=== PATIENT | male | born 1970 | race Two or more races ===

== ENCOUNTER 2019-09-27 12:27 | Emergency (ER) | payer OTHER ==
[~2019-09-27] VITALS: Ht 167.6 cm; Wt 68.9 kg
[2019-09-27 12:39] VITALS: BP 124/77
--- NOTE | 2019-09-27 12:39 | NUR ---
ED Nurse Note: Pt came in to ED from home c/o right wrist laceration x30 min ago. As per patirent, he accidentally hit his wrist with a tomato slicer. Pt c/o 10 pain. Radial pulses noted. Patient feels slightly dizzy. Cap refill less 3 sec. No active bleeding. VSS.
--- NOTE | 2019-09-27 12:45 | NUR ---
ED Nurse Note: ERPA at bedside.
[2019-09-27] MEDS ORDERED: METFORMIN HCL500 M1 ORAL (12:47)
[2019-09-27] MEDS ORDERED: ATORVASTATIN CA20 MG ORAL (12:47)
[2019-09-27] MEDS ORDERED: GLIPIZIDE5 MG ORAL (12:47)
--- NOTE | 2019-09-27 13:12 | Emergency Room Report ---
History of Present Illness General Chief Complaint: Laceration Source: Patient Present Illness HPI 48-year-old male presents to the emergency department complaining of laceration to the right wrist x30 minutes prior to arrival that is 10/10 in severity. Patient reports he accidentally sliced his wrist when he leaned on top of the blade of a vegetable chopper. Patient denies taking blood thinning medications he reports only significant past medical history of hypertension and diabetes type 2. He reports that he takes 800 mg ibuprofen regularly for back pain. He states he is not sure when his last tetanus vaccination was. Patient reports some mild bleeding at this time he reports some slight numbness to the skin about the laceration. He denies numbness or tingling in the distal extremities or loss of gross motor movements of the affected extremities. No other aggravating or relieving factors. He states his cleaned the wound [employer] with alcohol. Allergies: Coded Allergies: No Known Allergies (Verified Allergy, Unknown, 11/07/07) Patient History Past Medical History: see triage record Past Surgical History: none Pertinent Family History: none Reviewed Nursing Documentation: PMH: Agreed; PSxH: Agreed Nursing Documentation-PMH Past Medical History: No History, Except For Review of Systems All Other Systems: negative except mentioned in HPI Physical Exam Vital Signs Date Time Temp Pulse Resp B/P (MAP) Pulse Ox O2 Delivery O2 Flow Rate FiO2 09/27/19 12:33 97.5 60 16 124/77 (93) 95 Room Air Sp02 EP Interpretation: reviewed, normal General Appearance: no apparent distress, alert, GCS 15, non-toxic Head: normocephalic, atraumatic Eyes: bilateral eye normal inspection, bilateral eye PERRL ENT: hearing grossly normal, normal voice Neck: full range of motion Respiratory: lungs clear, normal breath sounds, speaking full sentences Cardiovascular #1: regular rate, rhythm, normal capillary refill Cardiovascular #2: 2+ radial (R), 2+ radial (L) Musculoskeletal: normal range of motion, gait/station normal, non-tender Neurologic: alert, motor strength/tone normal, oriented x3, sensory intact, responsive, speech normal Psychiatric: judgement/insight normal Skin: laceration - Right wrist laceration approx 4 cm in length Procedures Laceration/Wound Repair Laceration/Wound Repair : Consent: Verbal Wound Location: upper extremity - Right wrist Wound's Depth, Shape: linear, flap Wound Length (cm): 4 Wound Explored: clean Irrigated w/ Saline (ccs): 200 Anesthesia: Lidocaine w/ Epi Volume Anesthetic (ccs): 3 Wound Repaired With: sutures Suture Size/Type: 5:0 Number of Sutures: 5 Layer Closure?: No Sterile Dressing Applied?: Yes Splint Applied?: Yes - Right wrist Type of Splint Applied: Right wrist Sling Applied?: No Patient Tolerated: Well Complications: None Medical Decision Making PA Attestation Dr. Stephens is my supervising Physician whom patient management has been discussed with. Diagnostic Impression: Primary Impression: Laceration ER Course 48-year-old male presents to the emergency department complaining of laceration to the right wrist x30 minutes prior to arrival that is 10/10 in severity. Patient reports he accidentally sliced his wrist when he leaned on top of the blade of a vegetable chopper. Patient denies taking blood thinning medications he reports only significant past medical history of hypertension and diabetes type 2. He reports that he takes 800 mg ibuprofen regularly for back pain. He states he is not sure when his last tetanus vaccination was. Patient reports some mild bleeding at this time he reports some slight numbness to the skin about the laceration. He denies numbness or tingling in the distal extremities or loss of gross motor movements of the affected extremities. No other aggravating or relieving factors. He states his cleaned the wound [employer] with alcohol. Ddx considered but are not limited to laceration, tendon injury, cellulitis, amputation Vital signs: are WNL, pt. is afebrile H&PE are most consistent with: Right wrist laceration approx 4 cm in length ORDERS: none required at this time, the diagnosis is clinical ED INTERVENTIONS: -Tetanus vaccine was administered as pt. vaccination status was unknown. - The wound was copiously irrigated with normal saline, and explored for foreign body for which no FB was found. - pt. is anesthetized with 1%lidocaine w. epi. - The wound was approximated and closed using 5 interrupted 5.0 Ethilon sutures. -Bacitracin and sterile dressing is applied. Right wrist Splint applied by gi tech. Pt. remains neurovascularly intact. Discussed with patient: That we make every effort to approximate the laceration as best as we can so that scarring will be as cosmetically pleasing as possible with our limited cosmetic skill set in the Emergency dept. Regardless of our best efforts there will be scarring after laceration repair. The extent of scarring is unknown at this time. DISCHARGE: At this time pt. is stable for d/c to home. Will provide printed patient care instructions, and any necessary prescriptions. Care plan and follow up instructions have been discussed with the patient prior to discharge. Last Vital Signs Date Time Temp Pulse Resp B/P (MAP) Pulse Ox O2 Delivery O2 Flow Rate FiO2 09/27/19 12:39 97.5 60 16 124/77 95 Room Air Status: improved Disposition: HOME, SELF-CARE Condition: Stable Scripts Cephalexin* (KEFLEX*) 500 Mg Capsule 500 MG ORAL EVERY 12 HOURS for 7 Days, #14 CAP 0 Refills Prov: Alisa Burnham 09/27/19 Bacitracin/Polymyxin B Sulfate (BACITRACIN-POLYMYXIN OINTMENT) 28.35 Gm Oint...g. 1 APPLIC TP BID, #28.3 GM Prov: Alisa Burnham 09/27/19 Referrals: [facility],REFERRING (PCP) Patient Instructions: Laceration Care, Adult Additional Instructions: ~~~ SUTURES ARE TO BE REMOVED IN 10-12 Days. ( this can be done by your primary care provider or any urgent care as well). Take medications as directed. Follow up with a Primary Care Provider in 3-5 days, even if your symptoms have resolved. Return sooner to ED if new symptoms occur, or current symptoms become worse. - Please note that this Emergency Department Report was dictated using [employer] tech technology software, occasionally this can lead to erroneous entry secondary to interpretation by the dictation equipment. Alisa Burnham Sep 27, 2019 13:12
[2019-09-27] MEDS ORDERED: Tetanus/Diptheria/Pertussis IM ONE (13:15)
[2019-09-27] MEDS ORDERED: Neosporin Oint Ud Pkt TOPIC ONE (13:15)
[2019-09-27] MEDS ORDERED: Lidocaine 2% 20mg/ml/EPI 0.01mg/ml 20ml INJ ONE (13:15)
--- NOTE | 2019-09-27 13:25 | NUR ---
ED Nurse Note: ERPA at bedside for laceration repair.
[2019-09-27] MEDS ORDERED: BACITRACIN-P28.35 GM TP (13:59)
[2019-09-27] MEDS ORDERED: CEPHALEXIN500 MG ORAL (13:59)
--- NOTE | 2019-09-27 14:08 | NUR ---
ED Nurse Note: Wrist splint applied
[2019-09-27 14:11] VITALS: BP 124/77
--- NOTE | 2019-09-27 14:11 | NUR ---
ED Nurse Note: Pt cleared by ERMD for discharge. DC instructions/prescription was given and explained to pt and verbalized understanding of teachings. All medical deviecs such as ID band removed. Pt is AAO x4, ambulatory and left with all personal belongings.
== END 2019-09-27 14:11 | disposition home or self-care (01) ==
LOC: EMR 12:48
DX: S61.511A Laceration without foreign body of right wrist, initial encounter (principal); Z23 Encounter for immunization; W45.8XXA Other foreign body or object entering through skin, initial encounter; Y92.9 Unspecified place or not applicable; E11.9 Type 2 diabetes mellitus without complications; I10 Essential (primary) hypertension
CPT/HCPCS: 29125; 90471; 90715; 99283